=== PATIENT | female | born 1950 | race Caucasian/White ===

== ENCOUNTER → 2017-01-07 | Outpatient (CLI) | payer OTHER, MEDICARE | LOC: FIMAGING 08:13 | PROVIDERS: ATTEND Internal Medicine Hematology & Oncology | DX: Z13.820 Encounter for screening for osteoporosis (principal); M85.80 Other specified disorders of bone density and structure, unspecified site; Z82.62 Family history of osteoporosis; Z91.81 History of falling; Z85.3 Personal history of malignant neoplasm of breast | CPT/HCPCS: G0202 ==

== ENCOUNTER → 2017-01-17 | Outpatient (CLI) | payer OTHER, MEDICARE | LOC: BHLMT 13:00 | PROVIDERS: ATTEND Internal Medicine Cardiovascular Disease | DX: R07.9 Chest pain, unspecified (principal) | CPT/HCPCS: 78452; 93017; A9500 ==

== ENCOUNTER → 2017-10-08 | Outpatient (CLI) | payer OTHER, MEDICARE | LOC: BHLMT 11:45 | PROVIDERS: ATTEND Internal Medicine Cardiovascular Disease | DX: R07.9 Chest pain, unspecified (principal); R42 Dizziness and giddiness | CPT/HCPCS: 93225-PO; 93226-PO ==